=== PATIENT | female | born 1985 | race Caucasian/White ===

== ENCOUNTER 2017-09-28 18:07 | Emergency (ER) | payer BC ==
[2017-09-28] MEDS ORDERED: Gadobenate* (CONTRAST) 529 MG/ML 10 ML SDV IV ONE (20:28)
--- NOTE | 2017-09-28 21:38 | RAD ---
INDICATION: Left-sided facial droop with possible left-sided miosis COMPARISON: None TECHNIQUE: A 3-D time of flight magnetic resonance angiogram was performed from the carotid bifurcation to the vertex without intravenous contrast. Images were reconstructed in the maximum intensity projection format. FINDINGS: The internal carotid, anterior and middle cerebral arteries appear patent without evidence for high-grade stenosis or occlusion. The vertebral, basilar and posterior cerebral arteries appear patent without evidence for high-grade stenosis or occlusion. No aneurysm or vascular malformation is seen. Vertebrals: The vertebral arteries appear patent bilaterally. IMPRESSION: Normal MRA of the brain.
--- NOTE | 2017-09-28 21:39 | RAD ---
HISTORY: Left-sided facial droop and possible left-sided miosis COMPARISONS: None TECHNIQUE: The following sequences were obtained of the head: Sagittal T1-weighted images, axial T2-weighted images, axial FLAIR images, axial susceptibility weighted images, axial T1-weighted images. Additionally, axial diffusion-weighted images were obtained with calculated apparent diffusion coefficients.. FINDINGS: HEMORRHAGE/INFARCT: There is no hemorrhage or acute infarct. MASSES/SHIFT: There is no mass or shift. EXTRA-AXIAL SPACES/MENINGES: There are no extra-axial fluid collections. SULCI AND VENTRICLES: The sulci and ventricles are normal in size and position for the patient's stated age. CEREBRUM: There are no focal parenchymal abnormalities. BRAINSTEM: There are no focal parenchymal abnormalities. CEREBELLUM: There are no focal parenchymal abnormalities. The cerebellar tonsils are normal in size and position. SELLA: The sella is normal. PINEAL: The pineal region is clear. CP ANGLE/TEMPORAL BONES: The labyrinthine structures are grossly normal. VESSELS: Normal flow-voids are noted within the visualized vertebral vasculature. DIFFUSION ABNORMALITIES: There are no diffusion abnormalities. PARANASAL SINUSES/MASTOIDS: The paranasal sinuses are clear. ORBITS: The orbits are unremarkable. BONES AND SOFT TISSUE: No bone or soft tissue abnormalities are noted. IMPRESSION: NORMAL MRI OF THE BRAIN
--- NOTE | 2017-09-28 22:01 | RAD ---
INDICATION: Left-sided facial droop possible left-sided miosis COMPARISON: None TECHNIQUE: Coronal T2, sagittal T1, inversion recovery, T2, and axial T1, T2, and gradient echo images were acquired. FINDINGS: The sella and craniocervical junction appear unremarkable. There are no intrinsic abnormalities of the cord. The cervical vertebrae are normally aligned. The atlantodental interval is normal. Axial view images: Less otherwise specified below there is no significant central canal stenosis or neural foraminal stenosis. C2-C3: There is no significant central canal or neural foraminal stenoses. C3-C4: There is no significant central canal or neural foraminal stenoses. C4-C5: There is no significant central canal or neural foraminal stenoses. C5-C6: There is no significant central canal or neural foraminal stenoses. C6-C7: There is no significant central canal or neural foraminal stenoses. C7-T1: There is no significant central canal or neural foraminal stenoses. IMPRESSION: Normal MRI of the cervical spine.
--- NOTE | 2017-09-28 22:06 | RAD ---
CPT II Codes: 3100F HISTORY: Left-sided facial droop. Possible myositis in the left side. COMPARISONS: None TECHNIQUE: The following sequences were obtained of the head and neck after localizing images: Stacked axial 2-D [id number] MR angiography of the neck; 3-D axial [id number] MR angiography of the carotid bifurcations. Multiple 3-D maximum intensity projection reconstructions are submitted for review. FINDINGS: AORTA: The aortic arch is not well visualized secondary to technique and motion artifact. There is no obvious ostial or proximal stenosis of the cephalic great vessels. RIGHT VERTEBRAL ARTERY: The right vertebral artery is patent and without stenosis. LEFT VERTEBRAL ARTERY: The left vertebral artery is patent, without stenosis. DOMINANCE: None, the vertebral arteries are symmetrical. RIGHT COMMON CAROTID ARTERY: The right common carotid artery is patent. RIGHT INTERNAL CAROTID ARTERY: Adequately patent without obvious filling defect. Immediately below the carotid bifurcation the common carotid artery measures approximately 6 mm in diameter. The carotid bulb measures 6 mm and short axis diameter yielding 0% degree stenosis. LEFT COMMON CAROTID ARTERY: The left common carotid artery is patent. LEFT INTERNAL CAROTID ARTERY: Adequately patent without obvious filling defect. Just below the carotid bifurcation the left common carotid artery measures 5 mm in diameter. The left internal carotid artery also measures 5 mm in diameter yielding 0% degree stenosis. IMPRESSION: Normal noncontrast MRA of the neck. According to massive criteria there is 0% degree stenosis at the bilateral carotid arteries.
[2017-09-28] MEDS ORDERED: Ondansetron INJ* 2 MG/ML VIAL IV ONE (22:55)
[2017-09-28] MEDS ORDERED: Acetaminophen TAB* 325 MG PO ONE (22:55)
[2017-09-28 23:50] VITALS: BP 115/80
--- NOTE | 2017-09-30 18:32 | ED ---
Franck Escalante Angela, scribed for Jean Carlos Padilla MD on 09/28/17 at 2229 . Progress - Progress Note Progress Note: MRA Head, as read by radiologist: IMPRESSION: Normal MRA of the brain. MRA Neck, as read by radiologist: IMPRESSION: Normal noncontrast MRA of the neck. According to massive criteria there is 0% degree stenosis at the bilateral carotid arteries. Dr. Padilla has reviewed these radiology reports. Re-Evaluation - Re-Evaluation First Eval Re-Evaluation Time: 23:12 Comment: Pt reports feeling better. She agrees to have prompt follow up with digital tech as complicatons of lupus is a possibility of today's symptoms. Pt agrees and understands discharge instructions. She is neurologically intact. Course/Dx - Course Course Of Treatment: On re-evaluation, pt reports feeling better. She agrees to have prompt follow up with her digital tech as complicatons of lupus is a possibility of today's symptoms. Pt agrees and understands discharge instructions. She is neurologically intact. - Diagnoses Provider Diagnoses: Facial swelling Discharge - Sign-Out/Discharge Documenting (check all that apply): Discharge - discharge to home - Discharge Plan Condition: Improved Disposition: HOME Patient Education Materials: Lupus Erythematosus (DC) Referrals: Jose Manuel Ruiz [Primary Care Provider] - Additional Instructions: PLEASE TAKE MEDICATIONS DIRECTED PLEASE MAKE AN APPOINTMENT FIRST THING IN THE MORNING TO BE SEEN BY YOUR DOUBLE END PRODUCTION GRINDER WITHIN 1 WEEK PLEASE RETURN IMMEDIATELY TO THE ER IF YOU HAVE ANY WORSENING OR CONCERNING SYMPTOMS PLEASE MAKE AN APPOINTMENT TO BE SEEN BY YOUR PRIMARY CARE DOCTOR WITHIN 1 WEEK - Billing Disposition and Condition Condition: IMPROVED Disposition: HOME The documentation as recorded by the Franck sofia Angela accurately reflects the service I personally performed and the decisions made by me, Jean Carlos Padilla MD.
--- NOTE | 2017-09-30 18:34 | ED ---
Wild Escalante Stephanie, scribed for Jean Carlos Padilla MD on 09/28/17 at 1954 . Neurological HPI - HPI Summary HPI Summary: The pt is a 32 y/o F BIBA to the ED with c/o weakness that began at 08:00 on . Symptoms include full-body shakes, edema above eyes near eyebrow area, LE paresthesia, L sided facial swelling, L UE paresthesia, dizziness, L sided facial droop and JOHNSTON (began this morning). The pt was sent from [place] ED for neurological workup. The pt states she has had recent episodes of weakness and shaking. At [place], dental decay noted to L upper and lower areas as well. ED physician has reviewed the labs from [place] ED visit: HCG negative, creatinine normal, other labs within normal limits. - History of Current Complaint Chief Complaint: EDNeurologicalDeficit Stated Complaint: POSS STROKE Time Seen by Provider: 09/28/17 19:35 Hx Obtained From: Patient Onset/Duration: Sudden Onset, Started days ago - 1, Still Present Timing: Constant Current Severity: Mild Headache Location: Diffuse (Right), Diffuse (Left) Pain Intensity: 0 Pain Scale Used: 0-10 Numeric Character: Weak, Dizzy, Paresthesia - L UE, Other: - full-body shakes, edema above eyes near eyebrow area, L sided facial swelling, L sided facial droop and JOHN[place]ON Aggravating: Nothing Alleviating: Nothing Associated Signs and Symptoms: Positive: Headache, Weakness, Numbness - Allergy/Home Medications Allergies/Adverse Reactions: Allergies Allergy/AdvReac Type Severity Reaction Status Date / Time ketorolac [From Toradol] Allergy Tingling Verified 09/28/17 19:10 metoclopramide [From Reglan] Allergy See Comment Verified 09/28/17 19:12 PMH/Surg Hx/FS Hx/Imm Hx Endocrine/Hematology History: Reports: Autoimmune Disease - Lupus Sensory History: Denies: Hx Legally Blind EENT History: Denies: Hx Deafness - Surgical History Surgery Procedure, Year, and Place: TONSILECTOMY. TUBAL LIGATION. FULL HYSTERECTOMY. EXPLORATORY LAPAROSCOPIC SURGERY- (NOVEMBER) Infectious Disease History: No Infectious Disease History: Denies: Traveled Outside the [place] in Last 30 Days - Family History Known Family History: Positive: Other - ovarian cancer, breast cancer - Social History Occupation: Unemployed Lives: With Family Alcohol Use: None Substance Use Type: Reports: None Smoking Status (MU): Former Smoker Do You Chew or Dip Tobacco: No Review of Systems Negative: Fever Positive: Edema - L side of face, above eyes near eyebrow area Neurological: Other - full body shakes, dizziness, L sided facial droop Positive: Headache, Weakness, Paresthesia - LE bilaterally, L UE, Numbness All Other Systems Reviewed And Are Negative: Yes Physical Exam - Summary Physical Exam Summary: Appearance: Well-appearing, Well-nourished Skin: Warm, no changes or rash Eyes: Normal ENT: Normal Neck: Supple, nontender Respiratory: Clear to auscultation Cardiovascular: Normal S1, S2. No murmurs. Normal distal pulses in tibial and radial bilaterally. Abdomen: Soft, nontender Musculoskeletal: Normal, Strength/ROM Intact Neurological: A&Ox3, cranial nerves 2-12 intact, very slight L sided facial droop, minimal ptosis on L side of face, questionable myosis on the L , difference of 1 mm or less, nml strength and sensation of all 4 extremities, exam complicated by diffuse facial swelling on L side which obscures possible neurological findings Psychiatric: Normal General: No acute distress Triage Information Reviewed: Yes Vital Signs On Initial Exam: Initial Vitals Temp Pulse Resp BP Pulse Ox 98.6 F 74 16 119/74 96 09/28/17 18:21 09/28/17 18:21 09/28/17 18:21 09/28/17 18:21 09/28/17 18:21 Vital Signs Reviewed: Yes Diagnostics - Vital Signs Vital Signs Temp Pulse Resp BP Pulse Ox 09/28/17 18:21 98.6 F 74 16 119/74 96 - Laboratory Lab Statement: Any lab studies that have been ordered have been reviewed, and results considered in the medical decision making process. - Radiology MRI Brain Xray Interpretation: No Acute Changes Radiology Interpretation Completed By: Radiologist - Normal MRI of the brain. MRI Cervical Spine Xray Interpretation: No Acute Changes Radiology Interpretation Completed By: Radiologist - Normal MRI of the cervical spine. ED physician has reviewed this report. - Additional Comments Diagnostic Additional Comments: Head MRA reveals: Normal MRA of the brain. ED physician has reviewed this report. Re-Evaluation - Re-Evaluation First Eval Re-Evaluation Time: 23:12 Comment: Pt reports feeling better. She agrees to have prompt follow up with gelatin dynamite packing operator as complicatons of lupus is a possibility of today's symptoms. Pt agrees and understands discharge instructions. She is neurologically intact. Course/Dx - Course Assessment/Plan: MRI cspine ordered for possiblity of lateral medullary syndrome based on history and physical. MRI negative for any acute lesions, pt now neurologically intact. - Diagnoses Provider Diagnoses: Facial swelling, SLE exacerbation Discharge - Sign-Out/Discharge Documenting (check all that apply): Discharge - Discharge Plan Condition: Improved Disposition: HOME Patient Education Materials: Lupus Erythematosus (DC) Referrals: Jose Manuel Ruiz [Primary Care Provider] - Additional Instructions: PLEASE TAKE MEDICATIONS DIRECTED PLEASE MAKE AN APPOINTMENT FIRST THING IN THE MORNING TO BE SEEN BY YOUR ONLINE MERCHANT WITHIN 1 WEEK PLEASE RETURN IMMEDIATELY TO THE ER IF YOU HAVE ANY WORSENING OR CONCERNING SYMPTOMS PLEASE MAKE AN APPOINTMENT TO BE SEEN BY YOUR PRIMARY CARE DOCTOR WITHIN 1 WEEK - Billing Disposition and Condition Condition: IMPROVED Disposition: HOME The documentation as recorded by the Wild sofia Stephanie accurately reflects the service I personally performed and the decisions made by me, Jean Carlos Padilla MD.
== END 2017-09-28 23:54 | disposition home or self-care (01) ==
LOC: ED 18:07
DX: R53.1 Weakness (principal); M32.9 Systemic lupus erythematosus, unspecified; R22.0 Localized swelling, mass and lump, head; Z87.891 Personal history of nicotine dependence; Z88.8 Allergy status to other drugs, medicaments and biological substances
CPT/HCPCS: 70544; 70549; 70551; 72141; 96374; 99285; A9270-GY; A9577; J2405